=== PATIENT | male | born 1990 | race Hispanic/Latino ===

== ENCOUNTER 2017-06-30 13:50 | Inpatient (IN) | payer OTHER, BC ==
[~2017-06-30] VITALS: Ht 177.8 cm; Wt 125.5 kg
[~2017-06-30 13:50] MED LIST: ADVIL,NUPRIN,M200 MG PO
[2017-06-30 14:30] VITALS: BP 131/70
[2017-06-30 19:36] VITALS: BP 129/81
[2017-07-01 00:06] VITALS: BP 126/74
[2017-07-01 05:09] VITALS: BP 120/62
[2017-07-01 07:10] VITALS: BP 118/69
[2017-07-01 07:13] LABS: HEMATOCRIT 35.4 % (38.0-50.0); MCH 28.9 PG (29.0-34.0); MCHC 31.9 G/DL (30.0-36.0); MCV 90.5 FL (86-99); PLATELET COUNT 243 K/uL (156-360); RBC DIS.WIDTH-SD 39.8 % (39-53); RED BLOOD COUNT 3.91 M/uL (4.00-5.50); WHITE BLOOD COUNT 11.3 K/uL (4.1-10.2)
[2017-07-01 07:14] LABS: HEMOGLOBIN 11.3 G/DL (12.5-16.6)
[2017-07-01 07:43] LABS: CHLORIDE 102 MEQ/L (99-109); CREATININE 0.9 MG/DL (0.6-1.3); GFR ESTIMATE (CALCULATED) > 59 mL/min/ (58.99-99999); GLUCOSE 95 mg/dL (70-99); POTASSIUM 4.2 MEQ/L (3.7-5.4); SODIUM 136 MEQ/L (136-147); UREA NITROGEN (BUN) 13 mg/dL (9-23)
[2017-07-01 12:04] VITALS: BP 119/61
[2017-07-01 16:02] VITALS: BP 132/67
[2017-07-01 20:15] VITALS: BP 118/60
[2017-07-02 02:07] VITALS: BP 110/60
[2017-07-02 04:03] VITALS: BP 110/60
[2017-07-02 07:42] VITALS: BP 123/71
[2017-07-02 12:34] VITALS: BP 126/65
[2017-07-02 16:49] VITALS: BP 126/70
[2017-07-03 00:33] VITALS: BP 105/60
[2017-07-03 07:03] LABS: BASOPHIL (%) 0.8 % (0-1); BASOPHIL COUNT 0.1 K/uL (0-0.1); EOSINOPHIL (%) 2.1 % (0-5); EOSINOPHIL COUNT 0.2 K/uL (0-0.3); HEMATOCRIT 34.9 % (38.0-50.0); HEMOGLOBIN 11.4 G/DL (12.5-16.6); LYMPHOCYTE (%) 19.9 % (15-42); LYMPHOCYTE COUNT 1.4 K/uL (1.0-2.8); MCH 29.1 PG (29.0-34.0); MCHC 32.7 G/DL (30.0-36.0); MONOCYTE (%) 9.1 % (3-12); MONOCYTE COUNT 0.7 K/uL (0-0.8); NEUTROPHIL (%) 67.1 % (45-76); NEUTROPHIL COUNT 4.8 K/uL (1.8-6.4); RBC DIS.WIDTH-CV 11.7 % (11.8-14.6); RBC DIS.WIDTH-SD 37.2 % (39-53); RED BLOOD COUNT 3.92 M/uL (4.00-5.50); WHITE BLOOD COUNT 7.2 K/uL (4.1-10.2)
[2017-07-03 07:31] VITALS: BP 134/81
[2017-07-03 07:31] LABS: ALBUMIN 3.4 G/DL (3.2-4.8); CHLORIDE 106 MEQ/L (99-109); CREATININE 0.8 MG/DL (0.6-1.3); GFR ESTIMATE (CALCULATED) > 59 mL/min/ (58.99-99999); GLUCOSE 96 mg/dL (70-99); PHOSPHORUS 4.4 mg/dL (2.5-4.9); POTASSIUM 4.2 MEQ/L (3.7-5.4); SODIUM 142 MEQ/L (136-147); UREA NITROGEN (BUN) 11 mg/dL (9-23)
[2017-07-03 07:44] LABS: PLATELET COUNT 320 K/uL (156-360)
[2017-07-03 16:00] VITALS: BP 128/72
[2017-07-03 19:35] VITALS: BP 131/68
[2017-07-04 03:39] VITALS: BP 133/80
[2017-07-04 07:50] VITALS: BP 129/63
[2017-07-04 15:20] VITALS: BP 135/73
[2017-07-04 20:00] VITALS: BP 130/66
[2017-07-04 23:39] VITALS: BP 134/62
[2017-07-05 07:50] VITALS: BP 130/74
[2017-07-05] MEDS ORDERED: ONDANSETRON HCL8 MG PO (11:19)
[2017-07-05] MEDS ORDERED: DILAUDID4 MG PO (11:19)
[2017-07-05] MEDS ORDERED: COLACE100 MG PO (11:19)
[2017-07-05] MEDS ORDERED: BACTRIM,SEPT1 TABLET PO (11:22)
== END 2017-07-05 15:45 | disposition home health service (06) | DRG 571 ==
LOC: SDC → 2EASTP 17:19 → 2SOUTH 17:19 → ENRESERV 17:20 → 2EASTP 19:43
PROVIDERS: Surgery
DX: L02.214 Cutaneous abscess of groin (principal); L03.314 Cellulitis of groin; B95.62 Methicillin resistant Staphylococcus aureus infection as the cause of diseases classified elsewhere; E66.9 Obesity, unspecified; Z68.41 Body mass index [BMI] 40.0-44.9, adult; L73.9 Follicular disorder, unspecified; Z83.3 Family history of diabetes mellitus
CPT/HCPCS: 36415; 80048; 80069; 80202; 85025; 85027; 85610; 85730; 87070; 87075; 87076; 87077; 87147; 87186; 87205; 88305; A6260; J0330; J0690; J1170; J1644; J1885; J1956; J2270; J2405; J3010; J3370; J7120; S0028